=== PATIENT | female | born 1940 | race Caucasian/White ===

== ENCOUNTER 2017-05-13 10:14 | Observation (INO) ==
[2017-05-13] MEDS ORDERED: methylPREDNISolone 125 MG/2 ML VIAL IVP ONE (10:20)
[2017-05-13] MEDS ORDERED: Ipratropium/Albuterol Neb 3 ML IH ONE ×2 (10:20→13:31)
[2017-05-13] MEDS ORDERED: Levofloxacin 750 MG/150 ML 750 MG/150 ML BAG IVPB ONE (10:20)
--- NOTE | 2017-05-13 10:33 | Emergency Department Note ---
Disposition Clinical Impression: COPD with exacerbation Disposition: Admitted As Inpatient Condition: Good Referrals: Denae Goode CNP [Primary Care Provider] - Forms: ED Satisfaction Letter Time of Disposition: 11:36 SOB HPI - General Chief Complaint: ED Shortness of Breath/Dyspnea Stated Complaint: shortness of breath Source: patient Limitations: no limitations - History of Present Illness Patient presents to the emergency department for evaluation of cough and shortness of breath. She reports increasing shortness of breath over the past 3 -4 days with associated wheezing and a cough productive of yellow sputum. She denies hemoptysis. She denies chest pain. She denies fever or chills. She denies lower extremity edema or calf discomfort. She states that she recently completed a course of antibiotics approximate 4 days ago, she does not recall what that antibiotic was. EMS reports that the patient was hypoxic in the mid to upper 80s on her typical home 3 L, SPO2 improved when she received a DuoNeb in route and was placed on 4 L. - Related Data Home Medications Medication Instructions Recorded Confirmed Carvedilol [Coreg] 6.25 mg PO BIDWM 06/26/15 05/13/17 Lisinopril [Zestril] 20 mg PO DAILY 06/26/15 05/13/17 Ondansetron ODT [Zofran ODT] 4 mg SL Q6HR PRN 06/26/15 05/13/17 Hydrochlorothiazide 12.5 mg PO DAILY 02/20/16 05/13/17 Morphine Sulfate SR (12 HR) [MS 60 mg PO Q12HR PRN 05/13/17 05/13/17 Contin] diazePAM [Valium] 5 mg PO BID PRN 05/13/17 05/13/17 Previous Rx's Medication Instructions Recorded Cyclobenzaprine [Flexeril] 10 mg PO TID PRN #60 tablet 02/25/16 OxyCODONE Immed Rel [Roxicodone 15 15 mg PO Q8HR PRN #90 tablet 02/25/16 MG] Allergies Allergy/AdvReac Type Severity Reaction Status Date / Time butorphanol [From Stadol] Allergy Rash Verified 06/26/15 15:15 Constitutional: Denies: fever, chills Eyes: Denies: vision change ENT ED: Reports: congestion. Denies: ear pain Cardiovascular: Denies: chest pain, palpitations Respiratory: Reports: cough, dyspnea, wheezes, sputum production. Denies: hemoptysis Gastrointestinal: Denies: abdominal pain, nausea, vomiting, diarrhea Genitourinary: Denies: urgency Musculoskeletal: Denies: back pain, neck pain Integumentary: Denies: rash Neurological: Denies: headache, weakness, numbness, paresthesias Past Medical History - Past Medical History Medical history: Reports: asthma, COPD, coronary artery disease, hyperlipidemia , hypertension, osteoporosis, other Surgical history: Reports: angioplasty/stent, appendectomy, cholecystectomy, hip replacement, hysterectomy, orthopedic, other Psychiatric history: Reports: anxiety, depression [employer]CRETE B[employer]ER history: Reports: spontaneous - Social History Smoking Status: Current some day smoker Smokeless Tobacco Status: No Alcohol use: Reports: none Drug use: Reports: none Physical Exam - General Limitations: no limitations General appearance: alert, in no apparent distress - Eye Eye exam: Present: normal appearance. Absent: scleral icterus, conjunctival injection - ENT ENT exam: normal exam, normal oropharynx, TM's normal bilaterally - Neck Neck exam: Present: normal inspection, full ROM, trachea midline - Respiratory Respiratory exam: Present: wheezes, prolonged expiratory phase. Absent: respiratory distress, accessory muscle use - Cardiovascular Cardiovascular exam: Present: regular rate, normal rhythm, normal heart sounds - Abdominal Exam Abdominal exam: Present: soft, Non-Tender. Absent: tenderness, distention, guarding, rebound, rigidity - Extremities Exam Extremities exam: Present: normal inspection, full ROM. Absent: tenderness, pedal edema - Expanded Lower Extremity Exam Neurovascular/Tendon exam: Present: normal capillary refill - Psychiatric Psychiatric exam: Present: normal affect, normal mood - Skin Skin exam: Present: warm, dry, intact, normal color Course Vital Signs Temperature 98.3 F 05/13/17 10:21 Pulse Rate 68 05/13/17 10:21 Respiratory Rate 18 05/13/17 10:21 Blood Pressure 139/104 05/13/17 10:21 O2 Sat by Pulse Oximetry 96 05/13/17 10:21 Temperature 98.3 F 05/13/17 10:21 Pulse Rate 68 05/13/17 10:21 Respiratory Rate 118 05/13/17 10:44 Blood Pressure 139/104 05/13/17 10:21 O2 Sat by Pulse Oximetry 98 05/13/17 11:03 Oxygen Delivery Oxygen Delivery Nasal Cannula Shortness of Breath/Dyspnea - [facility] Narrative Medical decision making narrative: Time 11:30: Patient resting comfortably and feels markedly improved. Patient has ongoing generalized wheezing. Patient will be admitted to the hospitalist service for further evaluation and treatment of her COPD exacerbation with possible left lower lobe pneumonia failed outpatient therapy. - Lab Data Lab results reviewed: Yes I reviewed the patient's lab results. Result diagrams: 05/13/17 10:50 05/13/17 10:50 Lab Results 05/13/17 05/13/17 05/13/17 Range/Units 10:50 10:50 10:50 WBC 8.1 (4.3-11.1) K/mcL RBC 5.08 H (3.82-4.97) M/mcL Hgb 14.6 (11.5-15.4) g/dL Hct 43.7 (35.3-44.9) % MCV 86.0 (83.0-100.0) fL MCH 28.7 (28.0-33.3) pg MCHC 33.4 (31.6-35.5) g/dL RDW 14.0 (11.5-14.5) % Plt Count 295 (140-400) K/mcL MPV 9.5 (9.4-12.4) fL Immature Gran % 0.2 (0-4) % Seg Neutrophils % 67.0 % Lymphocytes % 22.9 % Monocytes % 6.1 % Eosinophils % 3.2 % Basophils % 0.6 % Neutrophils # 5.4 (1.6-8.9) K/mcL Lymphocytes # 1.8 (0.6-4.6) K/mcL Monocytes # 0.5 (0.0-1.3) K/mcL Eosinophils # 0.3 (0.0-0.6) K/mcL Basophils # 0.1 (0.0-0.2) K/mcL Sodium 135 L (136-145) mEq/L Potassium 4.8 H (3.5-4.5) mEq/L Chloride 96 L (98-109) mEq/L Carbon Dioxide 26 (19-29) mEq/L BUN 10 (7-20) mg/dL Creatinine 0.69 (0.57-1.11) mg/dL Est GFR ( Amer) > 60 (> 60) Est GFR (Non-Af Amer) > 60 (> 60) BUN/Creatinine Ratio 14 (6-26) Glucose 116 H (70-99) mg/dL Calculated Osmolality 280 (280-300) Calcium 9.8 (8.6-10.8) mg/dL Troponin I 0.01 (0-0.03) ng/mL ITS Impressions Chest X-Ray 05/13/17 10:20 IMPRESSION: Minimal left basilar opacity may relate to small left pleural effusion with associated minimal left basilar atelectasis or infiltrate. Diffuse interstitial prominence, similar to prior exam 09/05/2016 may reflect chronic interstitial changes. D/ / 05/13/2017 10:57:58 Lakhwinder Parker MD / Ella Prince Interpreting Provider: Lakhwinder Parker MD - Radiology Data Radiology results reviewed: Yes I reviewed the patient's radiology results. - EKG Data EKG attestation: Yes I reviewed and interpreted this EKG. EKG shows normal: Reports: sinus rhythm (Normal sinus rhythm with a rate of 69. Nonspecific changes. )
[2017-05-13 11:11] LABS: Basophils # 0.1 K/mcL (0.0-0.2); Basophils % 0.6 %; Eosinophils # 0.3 K/mcL (0.0-0.6); Eosinophils % 3.2 %; Hematocrit 43.7 % (35.3-44.9); Hemoglobin 14.6 g/dL (11.5-15.4); Immature Granulocytes % 0.2 % (0-4); Lymphocytes # 1.8 K/mcL (0.6-4.6); Lymphocytes % 22.9 %; Mean Corpuscular HGB Conc 33.4 g/dL (31.6-35.5); Mean Corpuscular Hemoglobin 28.7 pg (28.0-33.3); Mean Platelet Volume 9.5 fL (9.4-12.4); Monocytes # 0.5 K/mcL (0.0-1.3); Monocytes % 6.1 %; Neutrophils # 5.4 K/mcL (1.6-8.9); Platelet Count 295 K/mcL (140-400); Red Blood Count 5.08 M/mcL (3.82-4.97)
[2017-05-13 11:22] LABS: BUN/Creatinine Ratio 14 (6-26); Blood Urea Nitrogen 10 mg/dL (7-20); Calcium 9.8 mg/dL (8.6-10.8); Carbon Dioxide 26 mEq/L (19-29); Chloride 96 mEq/L (98-109); Glucose 116 mg/dL (70-99); Osmolality,Calculated 280 (280-300); Potassium 4.8 mEq/L (3.5-4.5); Sodium 135 mEq/L (136-145); eGFR For African Americans > 60 (> 60); eGFR For Non-African Americans > 60 (> 60)
[2017-05-13] MEDS ORDERED: Ondansetron ODT 4 MG TAB.RAPDIS SL PRN (11:39)
[2017-05-13] MEDS ORDERED: Ipratropium/Albuterol Neb 3 ML ONE (13:31)
[2017-05-13] MEDS ORDERED: Albuterol 2.5 MG/3 ML NEBULIZER IH PRN (15:00)
[2017-05-13] MEDS: Nicotine 21 MG PATCH.TD24 TD SCH (15:27)
[2017-05-13] MEDS: *HR* Morphine Sulfate SR (12 HR) 30 MG TABLET.ER PO PRN (15:29)
[2017-05-13] MEDS: *HR* Morphine Sulfate SR (12 HR) 15 MG TABLET.ER PO PRN (15:30)
--- NOTE | 2017-05-13 17:32 | Electrocardiograph Report ---
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
--- NOTE | 2017-05-13 18:34 | Internal Med History&Physical ---
Date of Encounter: 05/13/17 Time of Encounter: 18:05 Assessment and Plan (1) Acute exacerbation of chronic obstructive airways disease Current visit: No Status: Acute She has been started on Levaquin and Solu-Medrol. Further workup will be done as needed. Internal Medicine - H&P: HPI Chief complaint: Dyspnea Admitted From: Home Plans for Post Hospital Care: Home History of present illness: Ms. Rene is a 76 year old female who came to emergency room complaining of increasing dyspnea over the last 10 days. She had a cough with production of clear to slightly yellowish phlegm. She was seen by her PCP last week and received treatment but she does not remember the details. She did not feel improved so came to the emergency room. She was found to have exacerbation of COPD and was admitted to [facility] floor for ongoing care needs. She was hospitalized last at [facility] August 2016 with exacerbation of COPD. Respiratory history is significant for having smoked since age 19 up to 2 packs per day. She states 3 days ago she quit smoking. She has oxygen at home but does not wear it consistently. She has diagnoses of COPD, emphysema, and asthma. She had chest CT August 2016 hospitalization which showed no acute lung pathology. Past Med Surg Social Fam HX - Past Medical History Medical history: asthma, COPD, coronary artery disease, hyperlipidemia, hypertension, osteoporosis, other Psychiatric history: anxiety, depression - Past Surgical History Surgical History: angioplasty/stent, appendectomy, cholecystectomy, hip replacement, hysterectomy, orthopedic, other - Social History Smoking Status: Current some day smoker Packs per day: 1 Smokeless Tobacco Status: No Alcohol use: none Drug use: none - Family History Father Living Status: Hx Family Cardiac Disorders: Yes Mother Living Status: Hx Family Endocrine Disorder: Yes Internal Medicine - H&P: Meds Carvedilol [Coreg] 6.25 mg PO BIDWM 06/26/15 [History] Lisinopril [Zestril] 20 mg PO DAILY 06/26/15 [History] Ondansetron ODT [Zofran ODT] 4 mg SL Q6HR PRN 06/26/15 [History] Hydrochlorothiazide 12.5 mg PO DAILY 02/20/16 [History] Cyclobenzaprine [Flexeril] 10 mg PO TID PRN #60 tablet 02/25/16 [Rx] OxyCODONE Immed Rel [Roxicodone 15 MG] 15 mg PO Q8HR PRN #90 tablet 02/25/16 [Rx ] Morphine Sulfate SR (12 HR) [MS Contin] 60 mg PO Q12HR PRN 05/13/17 [History] diazePAM [Valium] 5 mg PO BID PRN 05/13/17 [History] Allergies butorphanol [From Stadol] Allergy (Verified 06/26/15 15:15) Rash All Systems PM: A 10-system review of systems was performed and is negative for pertinent findings except as documented above in the HPI. Review of systems: Gen.: Her weight has decreased from 45.813 kg at the July 2015 hospitalization to 36.996 kg at present. Cardiovascular: she has no known hypertension CA or heart failure. She had a stent placed in 2012. 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 She was started on Xarelto at the [facility] 2015 [facility] hospitalization for atrial fibrillation. She does not recall when the Xarelto was discontinued she does not take it presently and does not remember being told recently she has ongoing atrial fibrillation. Respiratory: As per history of present illness GI: She has had remote cholecystectomy and had subtotal gastrectomy with a small amount of small bowel resection 1974 due to bleeding ulcers. She denies disorders of her liver or exocrine pancreas. : She is status post hysterectomy. She denies disorders of her kidneys or bladder Neurologic: She has had no large distribution strokes or seizures. Endocrine: She has no known diabetes thyroid disease or hyperlipidemia Hematology oncology: No history of bleeding disorders or cancers Psychiatric: She has anxiety and depression Musk skeletal: she has osteoporosis with compression fractures (status post kyphoplasty). 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 - Constitutional Vitals: Temp Pulse Resp BP Pulse Ox 98.4 F 99 22 134/75 97 05/13/17 14:17 05/13/17 18:02 05/13/17 18:02 05/13/17 18:02 05/13/17 18:02 Exam: Gen.: She is well-developed frail female who appears in no acute distress HEENT: Head is atraumatic and normocephalic. Eyes: EOMI. There is no scleral icterus. Mouth: Mucosa is moist. Neck: Supple and nontender. There is no thyromegaly or adenopathy noted. Heart: Regular without murmurs gallops or ectopics Lungs: No wheezes or crackles are heard. She has diminished breath sounds diffusely Abdomen: Soft and nontender. No masses or guarding are noted. Extremities: There is no cyanosis edema or clubbing noted. Dorsalis pedis and posterior tibial pulses are trace palpable bilaterally. She has DJD changes of her hands and feet bilaterally. Neurologic: Mental status: She is talkative and a good historian. Cranial nerves: Smile is symmetric. Forehead wrinkles bilaterally. Tongue protrudes midline. EOMI. Motor: There is no pronator drift. Cerebellar: Finger to nose is intact bilaterally. Skin: Warm and dry Internal Med - H&P Results - Labs CBC & Chem 7: 05/13/17 10:50 05/13/17 10:50
[2017-05-13] MEDS ORDERED: Lisinopril 20 MG TABLET PO SCH (21:00)
[2017-05-13] MEDS: Budesonide/Formoterol 160/4.5 MDI IH SCH (22:40)
[2017-05-14] MEDS: diazePAM 5 MG TABLET PO PRN ×2 (01:35→10:19)
[2017-05-14] MEDS: *HR* Morphine Sulfate SR (12 HR) 15 MG TABLET.ER PO PRN (02:27)
[2017-05-14] MEDS: *HR* Morphine Sulfate SR (12 HR) 30 MG TABLET.ER PO PRN (02:27)
[2017-05-14 07:23] VITALS: BP 162/66
[2017-05-14] MEDS ORDERED: predniSONE 10 MG TABLET PO SCH (08:00)
--- NOTE | 2017-05-14 08:41 | Discharge Summary ---
Date of Encounter: 05/14/17 Time of Encounter: 08:30 - Discharge Diagnosis (1) Acute exacerbation of chronic obstructive airways disease Priority: Primary Status: Acute - Discharge Medications Prescriptions: Lactobacillus [Culturelle] 1 each PO BID #6 cap.sprink levoFLOXacin [Levaquin] 500 mg PO ONCE #3 tab Home Medications: Carvedilol [Coreg] 6.25 mg PO BIDWM 06/26/15 [History] Lisinopril [Zestril] 20 mg PO HS 06/26/15 [History] Ondansetron ODT [Zofran ODT] 4 mg SL Q6HR PRN 06/26/15 [History] Hydrochlorothiazide 12.5 mg PO DAILY 02/20/16 [History] Cyclobenzaprine [Flexeril] 10 mg PO TID PRN #60 tablet 02/25/16 [Rx] OxyCODONE Immed Rel [Roxicodone 15 MG] 15 mg PO Q8HR PRN #90 tablet 02/25/16 [Rx ] Morphine Sulfate SR (12 HR) [MS Contin] 60 mg PO Q12HR PRN 05/13/17 [History] diazePAM [Valium] 5 mg PO BID PRN 05/13/17 [History] Lactobacillus [Culturelle] 1 each PO BID #6 cap.sprink 05/14/17 [Rx] levoFLOXacin [Levaquin] 500 mg PO ONCE #3 tab 05/14/17 [Rx] Allergies/Adverse Reactions: Allergies butorphanol [From Stadol] Allergy (Verified 06/26/15 15:15) Rash Date of admission: 05/13/17 12:05 Primary care physician: Denae Goode CNP Consults: 05/13/17 14:32 Consult to Nutrition [CONS] Routine Comment: Consulting Provider: NUTRITION Reason for Dietary Consult: MST Score - Patient Status Disposition: Home Health Service Condition: Good Overall status at discharge: patient is progressing back to baseline - Discharge Instructions Follow Up With: Denae Goode CNP [Primary Care Provider] - 1 week - Diet and Activity Activity: resume usual activities as tolerated, wear oxygen at all times Diet: advance to your usual diet Hospital course: Ms. Rene is a 76 year old female who came to emergency room complaining of increasing dyspnea over the last 10 days. She had a cough with production of clear to slightly yellowish phlegm. She was seen by her PCP last week and received treatment but she does not remember the details. She did not feel improved so came to the emergency room. She was found to have exacerbation of COPD and was admitted to [facility] for ongoing care needs. Initial orders were written by the emergency room physician. I saw her on May 13 and performed a history and physical. She was started on Levaquin and Solu- Medrol through emergency room. I changed her to oral prednisone. She felt back to her baseline when I saw her on May 14. She felt she was stable for discharge home which I felt was reasonable. She will follow with her PCP Denae Goode CNP within 1 week. She will continue with Levaquin and probiotic for 3 additional days at discharge. I encouraged her to remain a nonsmoker. - Time Spent with Patient Total time spent providing and/or coordinating discharge services: - Constitutional Vitals: Temp Pulse Resp BP Pulse Ox 97.6 F 86 17 162/66 94 05/14/17 07:22 05/14/17 07:22 05/14/17 07:22 05/14/17 07:22 05/14/17 07:22
--- NOTE | 2017-05-14 08:44 | Physician Discharge Referral ---
Home Health/Hosp Referral Info Transfer to: Home Health Attending Provider: Jose Provider in Charge Post Discharge: PCP (Denae Goode CNP) - Diagnosis (1) Acute exacerbation of chronic obstructive airways disease Priority: Primary Status: Acute - Respiratory Orders Oxygen / L per min (O2 at 2 L/m by nasal cannula 23/05) Smoking Cessation: Smoking cessation has been advised. For more information, call the [place] Tobacco Quit Line at 5-358-JCAY-NOW. - Diet/Nutrition Diet/Nutrition Orders: Regular - Activity Activity Orders: Ambulate - Services Needed Following services are medically necessary services: Nursing, Home Health Aide, Physical Therapy, Occupational Therapy - Transfer Medications Prescriptions: Lactobacillus [Culturelle] 1 each PO BID #6 cap.sprink levoFLOXacin [Levaquin] 500 mg PO ONCE #3 tab Home Medications: Carvedilol [Coreg] 6.25 mg PO BIDWM 06/26/15 [History] Lisinopril [Zestril] 20 mg PO HS 06/26/15 [History] Ondansetron ODT [Zofran ODT] 4 mg SL Q6HR PRN 06/26/15 [History] Hydrochlorothiazide 12.5 mg PO DAILY 02/20/16 [History] Cyclobenzaprine [Flexeril] 10 mg PO TID PRN #60 tablet 02/25/16 [Rx] OxyCODONE Immed Rel [Roxicodone 15 MG] 15 mg PO Q8HR PRN #90 tablet 02/25/16 [Rx ] Morphine Sulfate SR (12 HR) [MS Contin] 60 mg PO Q12HR PRN 05/13/17 [History] diazePAM [Valium] 5 mg PO BID PRN 05/13/17 [History] Lactobacillus [Culturelle] 1 each PO BID #6 cap.sprink 05/14/17 [Rx] levoFLOXacin [Levaquin] 500 mg PO ONCE #3 tab 05/14/17 [Rx] Allergies/Adverse Reactions: Allergies butorphanol [From Stadol] Allergy (Verified 06/26/15 15:15) Rash Certification: Further, I certify that my clinical findings support that this patient is homebound (i.e. absences from home require considerable and taxing effort and are for medical reasons or advent services or infrequently or short duration when for other reasons) because: Homebound Reason: Leaving home requires considerable and taxing effort due to condition (Severe COPD with dyspnea on exertion) Attestation: My signature below is to certify that this patient is under my care and that I, or nurse practitioner, or a physician's clerical assistant working with me, has a face-to -face encounter with this patient.
[2017-05-14] MEDS ORDERED: hydroCHLOROthiazide 25 MG TABLET PO SCH (09:00)
[2017-05-14] MEDS ORDERED: Lisinopril 20 MG TABLET PO SCH (09:00)
[2017-05-14] MEDS ORDERED: levoFLOXacin 500 MG TABLET PO ONE (09:00)
[2017-05-14] MEDS: Nicotine 21 MG PATCH.TD24 TD SCH (09:14)
[2017-05-14] MEDS: Budesonide/Formoterol 160/4.5 MDI IH SCH (11:02)
[2017-05-15] MEDS ORDERED: levoFLOXacin 250 MG TABLET PO SCH (09:00)
== END 2017-05-14 12:30 | disposition home health service (06) ==
LOC: INPPIK 10:14 → EMEROOPIK 10:14 → INPPIK 14:00
PROVIDERS: ADMIT Internal Medicine; ATTEND Internal Medicine

== ENCOUNTER 2017-08-10 16:41 | Observation (INO) ==
[2017-08-10] MEDS ORDERED: Albuterol 2.5 MG/3 ML NEBULIZER IH ONE (17:08)
[2017-08-10] MEDS ORDERED: methylPREDNISolone 125 MG/2 ML VIAL IVP ONE (17:08)
[2017-08-10] MEDS ORDERED: Ipratropium/Albuterol Neb 3 ML IH ONE (17:08)
--- NOTE | 2017-08-10 17:11 | Emergency Department Note ---
Disposition Clinical Impression: Dehydration UTI (urinary tract infection) Qualifiers: Urinary tract infection type: acute cystitis Hematuria presence: without hematuria Qualified Code(s): N30.00 - Acute cystitis without hematuria Leg weakness Qualifiers: Laterality: bilateral Qualified Code(s): R29.898 - Other symptoms and signs involving the musculoskeletal system Disposition: Admitted As Inpatient Condition: Good Referrals: Denae Goode, NATURAL GAS INSPECTOR [Primary Care Provider] - Forms: ED Satisfaction Letter, Work/School Release Weakness HPI - General Chief complaint: ED General Medical Stated complaint: feeling weak and nauseated Time Seen by Provider: 08/10/17 17:05 Source: patient Mode of arrival: EMS Limitations: no limitations Nursing Notes Reviewed: Yes Vital Signs Reviewed: Yes - History of Present Illness HPI Narrative: 77-year-old white female transported by EMS with weakness since . She states getting gradually worse to the point where she has trouble walking through her house. She does admit she is more short of breath and usual. She has COPD, she continues to smoke, and she uses oxygen when necessary. She has a dry nonproductive cough. No chest pain. She has nausea but no vomiting. No frequency or urgency. No abdominal pain. Pt Subjective Complaint: generalized weakness/fatigue Onset (ago): day(s) Duration: constant Location: generalized (6) Migration: none Pain Severity: none Pain Scale: 0 Worsens with: exertion Context: other (COPD) Associated symptoms: Reports: other (Short of breath, nonproductive cough) - Related Data Home Medications Medication Instructions Recorded Confirmed Carvedilol [Coreg] 6.25 mg PO BIDWM 06/26/15 08/10/17 Lisinopril [Zestril] 20 mg PO HS 06/26/15 08/10/17 Ondansetron ODT [Zofran ODT] 4 mg SL Q6HR PRN 06/26/15 08/10/17 Hydrochlorothiazide 12.5 mg PO DAILY 02/20/16 08/10/17 Morphine Sulfate SR (12 HR) [MS 60 mg PO Q12HR PRN 05/13/17 08/10/17 Contin] diazePAM [Valium] 5 mg PO BID PRN 05/13/17 08/10/17 Previous Rx's Medication Instructions Recorded Cyclobenzaprine [Flexeril] 10 mg PO TID PRN #60 tablet 02/25/16 OxyCODONE Immed Rel [Roxicodone 15 15 mg PO Q8HR PRN #90 tablet 02/25/16 MG] Allergies Allergy/AdvReac Type Severity Reaction Status Date / Time butorphanol [From Stadol] Allergy Rash Verified 06/26/15 15:15 All systems ED: reviewed and negative except as stated. Constitutional: Denies: fever, chills Eyes: Denies: eye discharge ENT ED: Denies: ear pain, throat pain Cardiovascular: Denies: chest pain, palpitations Respiratory: Reports: cough, dyspnea, wheezes. Denies: hemoptysis, sputum production Gastrointestinal: Reports: nausea. Denies: abdominal pain, vomiting Genitourinary: Denies: urgency, dysuria, frequency Musculoskeletal: Denies: back pain Neurological: Reports: weakness. 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 Absent: scleral icterus, conjunctival injection - ENT ENT exam: normal oropharynx, mucous membranes moist - Neck Neck exam: Present: normal inspection, full ROM, trachea midline. Absent: tenderness, lymphadenopathy - Respiratory Respiratory exam: Present: wheezes (Moderate bilateral expiratory), prolonged expiratory phase. Absent: respiratory distress, accessory muscle use - Cardiovascular Cardiovascular exam: Present: regular rate, normal rhythm, normal heart sounds - Abdominal Exam Abdominal exam: Present: soft, Non-Tender, normal bowel sounds. Absent: organomegaly, mass - Extremities Exam Extremities exam: Present: full ROM, pedal edema (2+ nonpitting lower leg ankle and feet). Absent: tenderness - Back Exam Back exam: Absent: CVA tenderness (R), CVA tenderness (L) - Neurological Exam Neurological exam: Present: alert, oriented X3, CN II-XII intact, reflexes normal. Absent: motor sensory deficit - Psychiatric Psychiatric exam: Present: normal affect, normal mood - Skin Skin exam: Present: warm, dry, intact, normal color. Absent: cyanosis, diaphoresis Course - Reevaluation(s) Reevaluation #1: Daughter is here now. It ears that the patient is has chronic leg pain and is not getting up much at all off the couch. She is not fixing her meals so should not eating or drinking much. She is just becoming gradually weaker and weaker. The patient is agreeable for placement at [facility] for rehabilitation. She has been there before. I will contact Dr. Garcia to discuss admission for placement. Time: 21:04 Vital Signs Temperature 98.2 F 08/10/17 16:44 Pulse Rate 71 08/10/17 16:44 Respiratory Rate 18 08/10/17 16:44 Blood Pressure 121/74 08/10/17 16:44 O2 Sat by Pulse Oximetry 91 08/10/17 16:44 Temperature 98.2 F 08/10/17 16:44 Pulse Rate 68 08/10/17 19:14 Respiratory Rate 13 08/10/17 19:14 Blood Pressure 96/70 08/10/17 19:14 O2 Sat by Pulse Oximetry 95 08/10/17 19:14 Oxygen Delivery Oxygen Delivery Room Air Weakness - MDM Narrative Medical decision making narrative: Differential includes but is not limited to myocardial infarction, congestive heart failure, pneumonia, COPD exacerbation, urinary tract infection, dehydration, hyperglycemia, hypoglycemia - Lab Data Lab results reviewed: Yes I reviewed the patient's lab results. Result diagrams: 08/10/17 17:16 08/10/17 17:16 Lab Results 08/10/17 08/10/17 08/10/17 Range/Units 17:16 17:16 17:16 WBC 7.5 (4.3-11.1) K/mcL RBC 4.51 (3.82-4.97) M/mcL Hgb 12.8 (11.5-15.4) g/dL Hct 38.3 (35.3-44.9) % MCV 84.9 (83.0-100.0) fL MCH 28.4 (28.0-33.3) pg MCHC 33.4 (31.6-35.5) g/dL RDW 15.3 H (11.5-14.5) % Plt Count 248 (140-400) K/mcL MPV 9.0 L (9.4-12.4) fL Immature Gran % 0.4 (0-4) % Seg Neutrophils % 60.1 % Lymphocytes % 27.8 % Monocytes % 11.1 % Eosinophils % 0.3 % Basophils % 0.3 % Neutrophils # 4.5 (1.6-8.9) K/mcL Lymphocytes # 2.1 (0.6-4.6) K/mcL Monocytes # 0.8 (0.0-1.3) K/mcL Eosinophils # 0.0 (0.0-0.6) K/mcL Basophils # 0.0 (0.0-0.2) K/mcL Sodium 131 L (136-145) mEq/L Potassium 4.7 H (3.5-4.5) mEq/L Chloride 101 (98-109) mEq/L Carbon Dioxide 23 (19-29) mEq/L BUN 22 H (7-20) mg/dL Creatinine 0.84 (0.57-1.11) mg/dL Est GFR ( Amer) > 60 (> 60) Est GFR (Non-Af Amer) > 60 (> 60) BUN/Creatinine Ratio 26 (6-26) Glucose 98 (70-99) mg/dL Calculated Osmolality 275 L (280-300) Calcium 8.9 (8.6-10.8) mg/dL Total Bilirubin 0.5 (0.2-1.2) mg/dL AST 24 (5-34) Units/L ALT 15 (0-55) Units/L Alkaline Phosphatase 66 (38-126) Units/L Troponin I 0.02 (0-0.03) ng/mL B-Natriuretic Peptide (0-100) pg/mL Serum Total Protein 5.5 L (6.0-8.3) g/dL Albumin 3.0 L (3.5-5.0) g/dL Globulin 2.5 (2.4-3.5) g/dL Albumin/Globulin Ratio 1.2 (1.1-2.2) Urine Color (Yellow) Urine Clarity (Clear) Urine pH (5.0-8.0) pH Units Ur Specific [place] (1.010-1.025) Urine Protein (Neg-Trace) mg/dL Urine Glucose (UA) (Normal) mg/dL Urine Ketones (Negative) mg/dL Urine Blood (Negative) Urine Nitrite (Negative) Urine Bilirubin (Negative) Urine Urobilinogen (Normal) mg/dL Ur Leukocyte Esterase (Negative) Urine Microscopic WBC (0-3) per hpf Ur Culture Indicated? (NO) 08/10/17 08/10/17 Range/Units 17:16 20:31 WBC (4.3-11.1) K/mcL RBC (3.82-4.97) M/mcL Hgb (11.5-15.4) g/dL Hct (35.3-44.9) % MCV (83.0-100.0) fL MCH (28.0-33.3) pg MCHC (31.6-35.5) g/dL RDW (11.5-14.5) % Plt Count (140-400) K/mcL MPV (9.4-12.4) fL Immature Gran % (0-4) % Seg Neutrophils % % Lymphocytes % % Monocytes % % Eosinophils % % Basophils % % Neutrophils # (1.6-8.9) K/mcL Lymphocytes # (0.6-4.6) K/mcL Monocytes # (0.0-1.3) K/mcL Eosinophils # (0.0-0.6) K/mcL Basophils # (0.0-0.2) K/mcL Sodium (136-145) mEq/L Potassium (3.5-4.5) mEq/L Chloride (98-109) mEq/L Carbon Dioxide (19-29) mEq/L BUN (7-20) mg/dL Creatinine (0.57-1.11) mg/dL Est GFR ( Amer) (> 60) Est GFR (Non-Af Amer) (> 60) BUN/Creatinine Ratio (6-26) Glucose (70-99) mg/dL Calculated Osmolality (280-300) Calcium (8.6-10.8) mg/dL Total Bilirubin (0.2-1.2) mg/dL AST (5-34) Units/L ALT (0-55) Units/L Alkaline Phosphatase (38-126) Units/L Troponin I (0-0.03) ng/mL B-Natriuretic Peptide 96 (0-100) pg/mL Serum Total Protein (6.0-8.3) g/dL Albumin (3.5-5.0) g/dL Globulin (2.4-3.5) g/dL Albumin/Globulin Ratio (1.1-2.2) Urine Color Yellow (Yellow) Urine Clarity Clear (Clear) Urine pH 6.0 (5.0-8.0) pH Units Ur Specific [place] >= 1.030 H (1.010-1.025) Urine Protein Negative (Neg-Trace) mg/dL Urine Glucose (UA) Normal (Normal) mg/dL Urine Ketones Negative (Negative) mg/dL Urine Blood Negative (Negative) Urine Nitrite Negative (Negative) Urine Bilirubin Negative (Negative) Urine Urobilinogen Normal (Normal) mg/dL Ur Leukocyte Esterase Trace H (Negative) Urine Microscopic WBC 3-5 H (0-3) per hpf Ur Culture Indicated? YES A (NO) - Radiology Data Radiology results reviewed: Yes I reviewed the patient's radiology results. Impressions Chest X-Ray 08/10/17 17:08 IMPRESSION: Chronic interstitial changes are stable in the chest. No acute abnormality. D/ / Bernard Petersen MD / Bernard Petersen MD Interpreting Provider: Bernard Petersen MD - EKG Data EKG attestation: Yes I reviewed and interpreted this EKG. EKG results narrative: Sinus rhythm, rate is 66, nonspecific ST-T changes. Rhythm strip shows sinus rhythm with a rate of 66, [place] interval 163 ms, QRS 76 ms with no other ectopy as interpreted by me. This is compared to a tracing dated 05/13/17, no significant change.
[2017-08-10] MEDS ORDERED: Ondansetron 4 MG/2 ML VIAL IVP ONE (17:18)
[2017-08-10 17:22] LABS: Basophils % 0.3 %; Eosinophils % 0.3 %; Hematocrit 38.3 % (35.3-44.9); Hemoglobin 12.8 g/dL (11.5-15.4); Immature Granulocytes % 0.4 % (0-4); Lymphocytes # 2.1 K/mcL (0.6-4.6); Lymphocytes % 27.8 %; Mean Corpuscular HGB Conc 33.4 g/dL (31.6-35.5); Mean Corpuscular Hemoglobin 28.4 pg (28.0-33.3); Mean Corpuscular Volume 84.9 fL (83.0-100.0); Monocytes # 0.8 K/mcL (0.0-1.3); Monocytes % 11.1 %; Neutrophils # 4.5 K/mcL (1.6-8.9); Platelet Count 248 K/mcL (140-400); Red Blood Count 4.51 M/mcL (3.82-4.97); Red Cell Distribution Width 15.3 % (11.5-14.5); Segmented Neutrophils % 60.1 %
[2017-08-10 17:41] LABS: Alanine Aminotransferase 15 Units/L (0-55); Albumin/Globulin Ratio 1.2 (1.1-2.2); Alkaline Phosphatase 66 Units/L (38-126); Aspartate Amino Transferase 24 Units/L (5-34); BUN/Creatinine Ratio 26 (6-26); Bilirubin,Total 0.5 mg/dL (0.2-1.2); Blood Urea Nitrogen 22 mg/dL (7-20); Calcium 8.9 mg/dL (8.6-10.8); Carbon Dioxide 23 mEq/L (19-29); Chloride 101 mEq/L (98-109); Globulin 2.5 g/dL (2.4-3.5); Glucose 98 mg/dL (70-99); Osmolality,Calculated 275 (280-300); Potassium 4.7 mEq/L (3.5-4.5); Sodium 131 mEq/L (136-145); Total Protein 5.5 g/dL (6.0-8.3); eGFR For African Americans > 60 (> 60); eGFR For Non-African Americans > 60 (> 60)
[2017-08-10] MEDS ORDERED: 0.9 % Sodium Chloride 500 ML IVC ONE (19:26)
[2017-08-10] MEDS ORDERED: 0.9 % Sodium Chloride 1,000 ML IVC SCH ×2 (19:30→22:16)
[2017-08-10 20:35] LABS: Bilirubin,Urine Negative (Negative); Blood,Urine Negative (Negative); Clarity,Urine Clear (Clear); Color,Urine Yellow (Yellow); Glucose,Urine (UA) Normal (Normal); Ketones,Urine Negative (Negative); Leukocyte Esterase,Urine Trace (Negative); Nitrite,Urine Negative (Negative); Protein,Urine Negative (Neg-Trace); Specific Gravity,Urine >= 1.030 (1.010-1.025); Urobilinogen,Urine Normal (Normal)
[2017-08-10] MEDS ORDERED: diazePAM 5 MG TABLET PO PRN (22:16)
[2017-08-10] MEDS ORDERED: Naloxone 0.4 MG/ML INJ IVP PRN (22:16)
[2017-08-10] MEDS ORDERED: *HR* Morphine Sulfate SR (12 HR) 30 MG TABLET.ER PO PRN (22:16)
[2017-08-10] MEDS: 0.9 % Sodium Chloride 1,000 ML IVC SCH (23:16)
[2017-08-11] MEDS: *HR* OxyCODONE Immed Rel 15 MG TABLET PO PRN ×2 (03:15→20:56)
[2017-08-11] MEDS: 0.9 % Sodium Chloride 1,000 ML IVC SCH (10:24)
--- NOTE | 2017-08-11 12:39 | Internal Med History&Physical ---
Date of Encounter: 08/11/17 Time of Encounter: 12:15 Assessment and Plan (1) Weakness Current visit: No Status: Acute Probably multifactorial. We will ask for PT and OT evaluation. We will give IV fluids and recheck labs in a.m. She states she wishes to go to a local SNF for ongoing therapy. (2) COPD (chronic obstructive pulmonary disease) Current visit: Yes Status: Chronic Continue present regimen. Qualifiers: COPD type: emphysema Emphysema type: unspecified Qualified Code(s): J43.9 - Emphysema, unspecified (3) Dehydration Current visit: Yes Status: Acute We will give IV fluids and recheck labs in a.m. Internal Medicine - H&P: HPI Chief complaint: Weakness Admitted From: Home Plans for Post Hospital Care: Home History of present illness: Ms. Rene is a 77 year old female who came to the emergency room stating she had progressive weakness over the past 10 days. She reports a cough productive of white phlegm. She had one episode of diarrhea without recurrence. She denies significant pain. She was evaluated in the emergency room and felt to have possible UTI with dehydration. She was admitted to [facility] floor for ongoing care needs. She was hospitalized last at [facility] April 2017 with exacerbation of COPD. Her respiratory history is significant for having smoked since age 19 up to 2 packs per day. She has oxygen at home but does not wear it consistently. She has been diagnosed with COPD, emphysema, and asthma. She had chest CT August 2016 which showed no acute lung pathology. Past Med Surg Social Fam HX - Past Medical History Medical history: asthma, COPD, coronary artery disease, hyperlipidemia, hypertension, osteoporosis Psychiatric history: anxiety, depression - Past Surgical History Surgical History: angioplasty/stent, appendectomy, cholecystectomy, hip replacement, hysterectomy, orthopedic, other - Social History Smoking Status: Current every day smoker Smokeless Tobacco Status: No Alcohol use: none Drug use: none - Family History Father Living Status: Hx Family Cardiac Disorders: Yes Mother Living Status: Hx Family Endocrine Disorder: Yes Internal Medicine - H&P: Meds Carvedilol [Coreg] 6.25 mg PO BIDWM 06/26/15 [History] Lisinopril [Zestril] 20 mg PO HS 06/26/15 [History] Ondansetron ODT [Zofran ODT] 4 mg SL Q6HR PRN 08/27/15 [History] Hydrochlorothiazide 12.5 mg PO DAILY 02/20/16 [History] Cyclobenzaprine [Flexeril] 10 mg PO TID PRN #60 tablet 02/25/16 [Rx] OxyCODONE Immed Rel [Roxicodone 15 MG] 15 mg PO Q8HR PRN #90 tablet 02/25/16 [Rx ] Morphine Sulfate SR (12 HR) [MS Contin] 60 mg PO Q12HR PRN 05/13/17 [History] diazePAM [Valium] 5 mg PO BID PRN 05/13/17 [History] 3 Allergy/AdvReac Type Severity Reaction Status Date / Time butorphanol [From Stadol] Allergy Rash Verified 06/26/15 15:15 All Systems PM: A 10-system review of systems was performed and is negative for pertinent findings except as documented above in the HPI. Review of systems: Review of systems from her April 2017 [facility] hospitalization were reviewed and revised as below. Gen.: Her weight has decreased from 45.813 kg at the July 2015 hospitalization to 34.745 kg at present. Cardiovascular: She has no known hypertension HI or heart failure. She had a stent placed in 2012. 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 She was started on Xarelto at a 2016 [facility] hospitalization for atrial fibrillation. She does not recall when the Xarelto was discontinued. She has not had DVT or pulmonary emboli Respiratory: As per history of present illness GI: She has had remote cholecystectomy and had subtotal gastrectomy with a small amount of small bowel resection 1974 due to bleeding ulcers. She denies disorders of her liver or exocrine pancreas. : She is status post hysterectomy. She denies disorders of her kidneys or bladder Neurologic: She has had no large distribution strokes or seizures. Endocrine: She has no known diabetes thyroid disease or hyperlipidemia Hematology oncology: No history of bleeding disorders or cancers Psychiatric: She has anxiety and depression [place] skeletal: She has osteoporosis with compression fractures (status post kyphoplasty). 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 - Constitutional Vitals: Temp Pulse Resp BP Pulse Ox 98.4 F 69 18 93/60 90 08/11/17 06:37 08/11/17 06:37 08/11/17 06:37 08/11/17 06:37 08/11/17 06:37 Exam: Gen.: She is a well-developed frail female who appears weak but in no acute distress HEENT: Head is atraumatic and normocephalic. Eyes: EOMI. There is no scleral icterus. Mouth: Mucosa is moist. Neck: Supple and nontender. There is no thyromegaly or adenopathy noted. Heart: Regular without murmurs gallops or ectopics Lungs: No wheezes or crackles are heard. Back: She has dorsal kyphosis. Abdomen: Soft and nontender. No masses or guarding are noted. Extremities: There is no cyanosis edema or clubbing noted. Dorsalis pedis and posterior tibial pulses are trace to 1+ palpable bilaterally. She has DJD changes of her hands and feet. Neurologic: Mental status: She is talkative and a good historian. Cranial nerves: Smile is symmetric. Forehead wrinkles bilaterally. Tongue protrudes midline. EOMI. Motor: There is no pronator drift. Cerebellar: Finger to nose is intact bilaterally. Skin: Warm and dry Internal Med - H&P Results - Labs CBC & Chem 7: 08/10/17 17:16 08/10/17 17:16
[2017-08-11] MEDS: Ondansetron ODT 4 MG TAB.RAPDIS SL PRN (17:37)
--- NOTE | 2017-08-11 20:20 | Electrocardiograph Report ---
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
[2017-08-11] MEDS ORDERED: Lisinopril 20 MG TABLET PO SCH (21:00)
[2017-08-12] MEDS: *HR* OxyCODONE Immed Rel 15 MG TABLET PO PRN (04:52)
[2017-08-12] MEDS: Ondansetron ODT 4 MG TAB.RAPDIS SL PRN (04:52)
[2017-08-12 06:07] LABS: Basophils % 0.1 %; Eosinophils % 0.1 %; Hemoglobin 11.8 g/dL (11.5-15.4); Immature Granulocytes % 0.4 % (0-4); Lymphocytes # 2.2 K/mcL (0.6-4.6); Mean Corpuscular HGB Conc 32.8 g/dL (31.6-35.5); Mean Corpuscular Hemoglobin 28.2 pg (28.0-33.3); Mean Corpuscular Volume 86.1 fL (83.0-100.0); Mean Platelet Volume 9.5 fL (9.4-12.4); Monocytes % 9.2 %; Neutrophils # 7.2 K/mcL (1.6-8.9); Platelet Count 251 K/mcL (140-400); Red Blood Count 4.18 M/mcL (3.82-4.97); Red Cell Distribution Width 15.8 % (11.5-14.5); Segmented Neutrophils % 69.2 %
[2017-08-12 06:23] LABS: BUN/Creatinine Ratio 21 (6-26); Blood Urea Nitrogen 14 mg/dL (7-20); Calcium 8.4 mg/dL (8.6-10.8); Carbon Dioxide 22 mEq/L (19-29); Chloride 110 mEq/L (98-109); Glucose 86 mg/dL (70-99); Osmolality,Calculated 286 (280-300); Sodium 138 mEq/L (136-145); eGFR For African Americans > 60 (> 60); eGFR For Non-African Americans > 60 (> 60)
--- NOTE | 2017-08-12 10:34 | Discharge Summary ---
Date of Encounter: 08/12/17 Time of Encounter: 10:28 - Discharge Diagnosis (1) Weakness Priority: Primary Status: Acute (2) COPD (chronic obstructive pulmonary disease) Priority: Secondary Status: Chronic Qualifiers: COPD type: emphysema Emphysema type: unspecified Qualified Code(s): J43.9 - Emphysema, unspecified (3) Dehydration Priority: Secondary Status: Resolved - Discharge Medications Home Medications: Carvedilol [Coreg] 6.25 mg PO BIDWM 06/26/15 [History] Lisinopril [Zestril] 20 mg PO HS 06/26/15 [History] Ondansetron ODT [Zofran ODT] 4 mg SL Q6HR PRN 06/26/15 [History] Hydrochlorothiazide 12.5 mg PO DAILY 02/20/16 [History] Cyclobenzaprine [Flexeril] 10 mg PO TID PRN #60 tablet 02/25/16 [Rx] OxyCODONE Immed Rel [Roxicodone 15 MG] 15 mg PO Q8HR PRN #90 tablet 02/25/16 [Rx ] Morphine Sulfate SR (12 HR) [MS Contin] 60 mg PO Q12HR PRN 05/13/17 [History] diazePAM [Valium] 5 mg PO BID PRN 05/13/17 [History] Allergies/Adverse Reactions: 3 Allergy/AdvReac Type Severity Reaction Status Date / Time butorphanol [From Stadol] Allergy Rash Verified 06/26/15 15:15 Date of admission: 08/10/17 22:15 Primary care physician: Denae Goode CNP Consults: 08/11/17 12:47 Consult to Occupational Therapy [CONS] Routine Comment: Evaluate, develop and implement POC Reason for Consult: Weakness Consult to Physical Therapy [CONS] Routine Comment: Evaluate, develop and implement POC Reason for Consult: Weakness - Patient Status Disposition: Home Health Service Condition: Good Functional capacity at discharge: uses cane/walker - Discharge Instructions Follow Up With: Denae Goode CNP [Primary Care Provider] - 1 week - Diet and Activity Activity: resume usual activities as tolerated, wear oxygen at all times Diet: advance to your usual diet Hospital course: Ms. Rene is a 77 year old female came to the emergency room stating she had progressive weakness over the past 10 days. She reports a cough productive of white phlegm. She had one episode of diarrhea without recurrence. She denies significant pain. She was evaluated in the emergency room and felt to have possible UTI with dehydration. She was admitted to [facility] for ongoing care needs. Initial orders were written by the emergency room physician. I saw her on August 11 and performed a history and physical. She was given IV fluids. She felt stronger when I saw her on August 12 and felt stable for discharge home. She had PT and OT evaluations done during hospitalization. She declined an offer to go to SNF and stated she wanted to return home. BUN and creatinine improved to 14 and 0.68 respectively on the day of discharge with hydration. I encouraged her strongly to become a nonsmoker. She will follow with her PCP Denae Goode CNP within 1 week. - Time Spent with Patient Total time spent providing and/or coordinating discharge services: - Constitutional Vitals: Temp Pulse Resp BP Pulse Ox 98.6 F 66 17 141/94 92 08/12/17 07:16 08/12/17 07:16 08/12/17 07:16 08/12/17 07:16 08/12/17 07:16
--- NOTE | 2017-08-12 10:38 | Physician Discharge Referral ---
Home Health/Hosp Referral Info Transfer to: Home Health Attending Provider: Jose Provider in Charge Post Discharge: PCP (Denae Goode CNP) - Diagnosis (1) Weakness Priority: Primary Status: Acute (2) COPD (chronic obstructive pulmonary disease) Priority: Secondary Status: Chronic (3) Dehydration Priority: Secondary Status: Resolved - Respiratory Orders Oxygen / L per min (2 L/m by nasal cannula 23/05) Smoking Cessation: Smoking cessation has been advised. For more information, call the [place] [employer] Quit Line at 3-036-XEQH-NOW. - Diet/Nutrition Diet/Nutrition Orders: Regular - Activity Activity Orders: Ambulate - Services Needed Following services are medically necessary services: Nursing, Home Health Aide, Physical Therapy, Occupational Therapy - Transfer Medications Home Medications: Carvedilol [Coreg] 6.25 mg PO BIDWM 06/26/15 [History] Lisinopril [Zestril] 20 mg PO HS 06/26/15 [History] Ondansetron ODT [Zofran ODT] 4 mg SL Q6HR PRN 06/26/15 [History] Hydrochlorothiazide 12.5 mg PO DAILY 02/20/16 [History] Cyclobenzaprine [Flexeril] 10 mg PO TID PRN #60 tablet 02/25/16 [Rx] OxyCODONE Immed Rel [Roxicodone 15 MG] 15 mg PO Q8HR PRN #90 tablet 02/25/16 [Rx ] Morphine Sulfate SR (12 HR) [MS Contin] 60 mg PO Q12HR PRN 05/13/17 [History] diazePAM [Valium] 5 mg PO BID PRN 05/13/17 [History] Allergies/Adverse Reactions: 3 Allergy/AdvReac Type Severity Reaction Status Date / Time butorphanol [From Stadol] Allergy Rash Verified 06/26/15 15:15 Certification: Further, I certify that my clinical findings support that this patient is homebound (i.e. absences from home require considerable and taxing effort and are for medical reasons or taoism services or infrequently or short duration when for other reasons) because: Homebound Reason: Leaving home requires considerable and taxing effort due to condition (End stage COPD) Attestation: My signature below is to certify that this patient is under my care and that I, or nurse practitioner, or a physician's supply assistant working with me, has a face-to -face encounter with this patient.
[2017-08-12 12:43] VITALS: BP 137/87
== END 2017-08-12 15:15 | disposition home health service (06) ==
LOC: INPPIK 16:41 → EMEROOPIK 16:41 → INPPIK 22:20
PROVIDERS: ADMIT Internal Medicine; ATTEND Internal Medicine